=== PATIENT | female | born 1980 | race Caucasian/White ===

== ENCOUNTER 2016-10-19 08:45 | Inpatient (IN) | payer MEDICAID ==
[~2016-10-19] VITALS: Ht 152.4 cm; Wt 82.9 kg
[~2016-10-19 08:45] MED LIST: PRENAT PO
[2016-10-19 09:25] VITALS: Ht 152.4 cm; Wt 82.9 kg
[2016-10-19 09:26] VITALS: BP 105/65; PULSE 87
--- NOTE | 2016-10-19 09:57 | TRIAGE ---
OB Triage Datetime Report Generated by CPN: 10/19/2016 09:57 Datetime: 10/19/2016 09:43 Assessment Type: Admission Assessment Vaginal Bleeding: Scant Maternal Assessment Level of Consciousness: Fully Conscious DTR's/Clonus: DTRs 2+; No Clonus Headache: Denies Blurred Vision: No Respiratory Effort: Unlabored; Regular Rhythm; Equal Expansion Breath Sounds, Left: Clear and Equal Breath Sounds, Right: Clear and Equal Nausea/Vomiting: Denies RUQ Epigastric Pain: Denies Lower Extremities Edema: None Upper Extremities Edema: None Facial Edema: None Fall Risk Assessment History of Falling: (0) No Secondary Diagnosis: (0) No Ambulatory Aid: (0) Bedrest/Nurse Assist IV Therapy: (0) No Gait: (0) Normal/Bedrest/Immobile Mental Status: (0) Oriented to Own Ability Fall Score: 0 Fall Risk Score Definition: No Risk: No action required Labor Evaluation Frequency: 10 Duration (sec)2399: 90 Quality: Moderate Pattern: Normal: <= 5 Contractions in 10 Minutes Resting Tone [place]: Relaxed Heart Rate FHR Baseline Rate: 130 Variability: Minimal - Undetectable to <=5 bpm Accelerations: None Decelerations: Early; Variable Category: Category II Pain Assessment Pain Scale: 4 Pain Presence: Intermittent Pain Type: Contraction Pain Location: Abdomen Membrane Status: Intact Datetime: 10/19/2016 09:15 Interventions: Side to Side Heart Rate FHR Baseline Rate: 135 Monitor Mode: External US FHR Baseline Changes: No Baseline Change Variability: Moderate 6-25 bpm Decelerations: Variable Category: Category II Datetime: 10/19/2016 09:11 Membrane Status: Ruptured Membranes Rupture Method: Artificial Amniotic Fluid Color: Bloody Amniotic Fluid Amount: Scant Amniotic Fluid Odor: None Datetime: 10/19/2016 09:09 Vaginal Exam Dilatation (cms): 3.5 Exam By: DR SIN Datetime: 10/19/2016 09:08 Stage of : OB Triage Assessment Type: Triage Maternal Assessment Level of Consciousness: Fully Conscious DTR's/Clonus: DTRs 2+; No Clonus Headache: Denies Blurred Vision: No Respiratory Effort: Unlabored; Regular Rhythm; Equal Expansion Breath Sounds, Left: Clear and Equal Breath Sounds, Right: Clear and Equal Nausea/Vomiting: Denies RUQ Epigastric Pain: Denies Lower Extremities Edema: None Degree: None Upper Extremities Edema: None Degree: None Facial Edema: None Temperature Route: Oral Fall Risk Assessment History of Falling: (0) No Secondary Diagnosis: (0) No Ambulatory Aid: (0) Bedrest/Nurse Assist IV Therapy: (0) No Gait: (0) Normal/Bedrest/Immobile Mental Status: (0) Oriented to Own Ability Fall Score: 0 Fall Risk Score Definition: No Risk: No action required Labor Evaluation Frequency: x1 Monitor Mode: External Duration (sec)2399: 70 Quality: Mild Resting Tone [place]: Relaxed Heart Rate FHR Baseline Rate: 135 Monitor Mode: External US FHR Baseline Changes: No Baseline Change Variability: Moderate 6-25 bpm Accelerations: 15X15 Decelerations: None Category: Category I Pain Assessment Pain Scale: 0 Pain Presence: None/Denies Pain Type: N/A Datetime: 10/19/2016 09:07 Time of Arrival: 10/19/2016 09:07 EGA: 39.2 Arrived By: Ambulatory Arrived From: Home Datetime: 10/19/2016 09:02 Time of Arrival: 10/19/2016 08:41 Arrived By: Ambulatory Arrived From: Home Chief Complaint: pt is here c/o vaginal bleeeding when swiping, and start feeling stronger contact ions q 10 min from 7:00 am Movement: Present Contractions: Regular Time Contractions Began: 10/19/2016 07:00 Contractions: Q 10 min Rupture of Membranes: Denies Vaginal Bleeding: Scant Vaginal Discharge: Denies Recent Sexual Intercouse: Denies Abdominal Trauma: Not Applicable Patient Complaints: Contractions; Other Time Provider Notified: 10/19/2016 09:09 Provider Notified: DR SIN Initial Plan: ADMIT TO L _ d, START PITOCIN AND PT CAN HAVE AN EPIDURAL
[2016-10-19] MEDS ORDERED: LACTATED RINGER'S 1,000 ML IV PRN (10:01)
[2016-10-19] MEDS: LACTATED RINGER'S 1,000 ML IV SCH ×2 (10:14→12:08)
[2016-10-19] MEDS ORDERED: AMPICILLIN 2 GM/NS (PMX) 100 ML IV ONE (10:30)
[2016-10-19] MEDS ORDERED: BUTORPHANOL 2 MG INJ IV PRN ×2 (10:30)
[2016-10-19] MEDS ORDERED: OXYTOCIN 30 UNITS/LR 500 ML IV PRN (10:30)
[2016-10-19] MEDS ORDERED: OXYTOCIN 30 UNITS/LR 500 ML IV SCH ×3 (10:30)
[2016-10-19] MEDS ORDERED: LIDOCAINE 1% (MPF) 30 ML INJ INJ PRN (10:30)
[2016-10-19] MEDS ORDERED: IBUPROFEN 600 MG TAB PO PRN (10:30)
[2016-10-19] MEDS ORDERED: METHYLERGONOVINE 0.2 MG INJ IM PRN (10:30)
[2016-10-19] MEDS ORDERED: MISOPROSTOL 200 MCG TAB PR PRN (10:30)
[2016-10-19] MEDS ORDERED: ACETAMINOPHEN/CODEINE #3 TAB PO PRN ×3 (10:30→17:00)
[2016-10-19] MEDS ORDERED: CARBOPROST 250 MCG INJ IM PRN (10:30)
[2016-10-19 11:02] LABS: ADD SCAN DIFF NO
[2016-10-19 11:10] LABS: BASOPHILS % 0.1 % (0.0-2.0); EOSINOPHILS # 0.1 10^3/ul (0.0-0.5); EOSINOPHILS % 1.3 % (0.0-7.0); HEMATOCRIT 36.5 % (37.0-47.0); HEMOGLOBIN 12.1 g/dl (12.0-16.0); LYMPHOCYTES # 1.9 10^3/ul (0.8-2.9); MEAN CORPUSCULAR HEMOGLOBIN 27.4 pg (29.0-33.0); MEAN CORPUSCULAR HGB CONC 33.2 g/dl (32.0-37.0); MEAN CORPUSCULAR VOLUME 82.8 fl (82.0-101.0); MEAN PLATELET VOLUME 12.9 fl (7.4-10.4); MONOCYTE # 0.6 10^3/ul (0.3-0.9); NEUTROPHIL # 5.3 10^3/ul (1.6-7.5); NEUTROPHILS % 67.2 % (39.0-77.0); PLATELET COUNT 151 10^3/UL (140-415); RED BLOOD COUNT 4.41 10^6/ul (4.20-5.40); RED CELL DISTRIBUTION WIDTH 14.5 % (11.5-14.5); WHITE BLOOD COUNT 7.9 10^3/ul (4.8-10.8)
[2016-10-19 11:24] LABS: INR 0.96; PROTIME 12.8 Sec (12.2-14.2)
[2016-10-19 11:25] LABS: PARTIAL THROMBOPLASTIN TIME 28.6 Sec (25.0-35.0)
[2016-10-19] MEDS ORDERED: NALOXONE (0.4 MG/ML) INJ IV PRN (12:30)
[2016-10-19] MEDS ORDERED: FENTAnyl 2MCG/ML-ROPIV 0.2% 100 ML BAG EPI SCH (12:30)
[2016-10-19] MEDS ORDERED: DIPHENHYDRAMINE 50 MG INJ IV PRN (12:30)
[2016-10-19] MEDS ORDERED: ONDANSETRON 4 MG INJ IV PRN ×2 (12:30→17:00)
[2016-10-19] MEDS ORDERED: TERBUTALINE 0 ML ONE (14:28)
[2016-10-19] MEDS ORDERED: AMPICILLIN 1 GM/NS (PMX) 50 ML IV SCH (14:30)
[2016-10-19] MEDS ORDERED: MINERAL OIL LIGHT 10 ML VIAL TOP ONE (15:30)
--- NOTE | 2016-10-19 15:56 | HP ---
Date/Time of Note Date/Time of Note DATE: 10/19/16 TIME: 15:50 OB - History Hx of Present Free Text/Dictation 36 years old G/5 p/4 admitted to [facility] at 39 weeks and 2 days in labor contractions 3-5 minute pelvic examination on admission cervix 3 centimeter dilated 75% effaced vertex at -2 station with intact membranes. Chief Complaint: Labor pain Estimated Due Date: Oct 24, 2016 : 5 Para: 4 Care: Good Care Ultrasounds: Normal mid trimester US Obstetrical Complications: None Medical Complications: None Past Family/Social History * Past Medical, Surgical, Family and Obstetric Histories reviewed from chart. Rubella: immune RPR/VDRL: Negative GBS Status: Negative HBsAG: Negative OB Admission Exam Vital Signs Vital Signs Vital Signs Date Time Temp Pulse Resp B/P Pulse Ox O2 Delivery O2 Flow Rate FiO2 10/19/16 09:26 98.3 87 105/65 Room Air Physical Exam HEENT: WNL Cervical Dilatation: 3cm Effacement: 75% Station: -1 Membranes: Intact Heart Rate: 130's Accelerations: Accelerations Present Decelerations: Variable Decelerations Varibility: Moderate Contractions on Admission: 6-10 Minutes Apart Intensity: Mild Last 72 hours Lab Results CBC & BMP 10/19/16 09:52 RADHA SIN MD Oct 19, 2016 15:55
--- NOTE | 2016-10-19 16:00 | LDN ---
Date/Time of Note Date/Time of Note DATE: 10/19/16 TIME: 15:56 Delivery Summary Normal spontaneous vaginal delivery of a baby boy from [place] position shoulders delivered without any difficulty with a nuchal cord around the baby's neck 1 placenta spontaneous expulsion inspected complete patient sustained small first- degree perineal laceration repaired with 3-0 chromic catgut estimated blood loss 250 cc Placenta Delivered: Spontaneously Meconium: Light Perineum intact?: No Estimated blood loss: 200 Sponge & Needle done & correct: Yes All needle counts correct: Yes Any foreign bodies felt in the: No Problems: Infant Delivery Information Sex Sex: male Apgars 1 Minute: 8 5 Minute: 9 Suctioning Nose & mouth suctioned at frank: Yes Delee suction performed: No Umbilical Cord Umbilical cord with: 3 Vessels Cord presentations: nuchal cord Cord Blood was obtained: Yes RADAH SIN MD Oct 19, 2016 15:59
[2016-10-19] MEDS ORDERED: DIBUCAINE 1% 30 GM OINT PR PRN (17:00)
[2016-10-19] MEDS ORDERED: ACETAMINOPHEN 325 MG TAB PO PRN (17:00)
[2016-10-19] MEDS ORDERED: LANOLIN 7 GM TUBE TOP PRN (17:00)
[2016-10-19] MEDS ORDERED: WITCH HAZEL/GLYCERIN PAD PR PRN (17:00)
[2016-10-19] MEDS ORDERED: BENZOCAINE 20% 56 ML SPRAY TOP PRN (17:00)
[2016-10-19] MEDS ORDERED: OXYCODONE/ASPIRIN (4.88/325) TAB PO PRN ×2 (17:00)
[2016-10-19 17:50] VITALS: BP 108/61; PULSE 66; RESP 18
[2016-10-19] MEDS: OXYTOCIN 30 UNITS/LR 500 ML IV SCH ×2 (18:05→21:01)
[2016-10-19] MEDS: IBUPROFEN 600 MG TAB PO SCH (18:42)
[2016-10-19 20:00] VITALS: BP 100/55; PULSE 73; RESP 18
[2016-10-19] MEDS: SENNA/DOCUSATE NA (8.6MG/50MG) TAB PO SCH (21:48)
[2016-10-20 02:56] VITALS: BP 94/53; RESP 18
[2016-10-20 05:30] VITALS: BP 96/54; PULSE 75; RESP 18
[2016-10-20] MEDS: IBUPROFEN 600 MG TAB PO SCH ×5 (06:00→23:35)
[2016-10-20 07:30] VITALS: BP 98/52; PULSE 68; RESP 17
[2016-10-20 07:42] LABS: ADD SCAN DIFF NO
[2016-10-20 07:45] LABS: BASOPHIL # 0.1 10^3/ul (0.0-0.1); BASOPHILS % 0.5 % (0.0-2.0); EOSINOPHILS # 0.2 10^3/ul (0.0-0.5); EOSINOPHILS % 1.4 % (0.0-7.0); HEMATOCRIT 34.5 % (37.0-47.0); HEMOGLOBIN 11.1 g/dl (12.0-16.0); LYMPHOCYTES # 2.8 10^3/ul (0.8-2.9); LYMPHOCYTES % 26.1 % (15.0-51.0); MEAN CORPUSCULAR HGB CONC 32.2 g/dl (32.0-37.0); MEAN CORPUSCULAR VOLUME 83.9 fl (82.0-101.0); MEAN PLATELET VOLUME 12.5 fl (7.4-10.4); MONOCYTE # 0.9 10^3/ul (0.3-0.9); MONOCYTES % 8.1 % (0.0-11.0); NEUTROPHIL # 6.8 10^3/ul (1.6-7.5); NEUTROPHILS % 63.6 % (39.0-77.0); PLATELET COUNT 139 10^3/UL (140-415); RED BLOOD COUNT 4.11 10^6/ul (4.20-5.40); RED CELL DISTRIBUTION WIDTH 14.7 % (11.5-14.5); WHITE BLOOD COUNT 10.6 10^3/ul (4.8-10.8)
[2016-10-20] MEDS: SENNA/DOCUSATE NA (8.6MG/50MG) TAB PO SCH ×2 (09:26→23:35)
--- NOTE | 2016-10-20 09:54 | PN ---
Date/Time of Note Date/Time of Note DATE: 10/20/16 TIME: 09:53 OB Subjective Subjective Subjective day 1 Afebrile vital signs stable abdomen soft uterus firm lochia normal extremity normal RADHA SIN MD Oct 20, 2016 09:53
[2016-10-20 12:00] VITALS: BP 101/52; PULSE 76; RESP 19
[2016-10-20 15:30] VITALS: BP 100/53; PULSE 75; RESP 20
[2016-10-20 20:15] VITALS: BP 102/65; PULSE 76; RESP 18
[2016-10-21 04:01] VITALS: BP 94/53; PULSE 69; RESP 18
[2016-10-21] MEDS: IBUPROFEN 600 MG TAB PO SCH ×3 (05:49→17:28)
--- NOTE | 2016-10-21 08:56 | PD.PPDC ---
[employer]PER[employer] Discharge Instruction Condition Patient Condition: Good Diet Diet: Resume Regular Diet Activity/Restrictions Activity: Normal Activity May Shower Restrictions: No Sexual Activity Nothing in the Vagina No [place] No Tampons, douche Follow-up Follow-up with Physician: 6, Week/Weeks Return to clinic for [employer] Instructions: Fever greater than 101 Chills Worsening abdominal pain Excessive Vaginal Bleeding OB Instructions: Breast Tenderness Depression JEOVANY HERNANDEZ MD Oct 21, 2016 08:56
--- NOTE | 2016-10-21 08:59 | DS ---
Date/Time of Note Date/Time of Note DATE: 10/21/16 TIME: 08:57 Obstetrical Discharge Record Final Diagnosis Final Diagnosis: Term delivered Vaginal Delivery Obstetrical Delivery: Spontaneous, Laceration, Repaired Complications Augmentation: Yes Induction: No Condition on Discharge Physical Assessment Last Vitals: T= 97.7 BP 94/53 Voiding: Yes Bowel Movement: Yes Breast: Filling Fundus: Firm Calf Tenderness: No Patient Condition: Good JEOVANY HERNANDEZ MD Oct 21, 2016 08:59
[2016-10-21] MEDS ORDERED: MEASLES,MUMPS,RUBELLA VACCINE INJ SC* ONE (09:00)
[2016-10-21] MEDS: SENNA/DOCUSATE NA (8.6MG/50MG) TAB PO SCH (09:51)
[2016-10-21 16:00] VITALS: BP 107/61; PULSE 75; RESP 18
== END 2016-10-21 18:11 | disposition home or self-care (01) | DRG 775 ==
LOC: OBT 08:45 → L-D 08:45 → OBT 09:39 → L-D 09:44 → PP1 17:46
PROVIDERS: ADMIT Obstetrics & Gynecology; ATTEND Obstetrics & Gynecology
PROC: 10E0XZZ Delivery of Products of Conception, External Approach (ICD-10-PCS; principal; 2016-10-19)
PROC: 0HQ9XZZ Repair Perineum Skin, External Approach (ICD-10-PCS; 2016-10-19)
DX: O70.0 First degree perineal laceration during delivery (principal); O69.81X0 Labor and delivery complicated by cord around neck, without compression, not applicable or unspecified; Z3A.39 39 weeks gestation of pregnancy; Z37.0 Single live birth
CPT/HCPCS: 62319; 85025; 85610; 85730; 86592; 86900; 86901; 87340; G0463; J0290; J2590; J3010; J3105; J7120